=== PATIENT | female | born 1975 | race Caucasian/White ===

== ENCOUNTER 2019-01-16 12:36 | Outpatient (REF) | payer MEDICAID, SELFPAY ==
--- NOTE | 2019-01-16 11:45 | PAPFT_PTH ---
PATIENT: Laquita Clarke LOC: [facility] U#:[id number] AGE/SX: 44/F ROOM: RE01/16/[address]: Ian Farmer : 1975 BED: DIS: 01/16/2019 SPEC #: [id number] RECD: 01/17/19 13:03 STATUS: SUSANNA RELacey #: [id number] VIKASH: 01/16/19 11:[address]: Ian Farmer DEPT: [facility] Cytology RECD BY: Ashlee Sun Tissues: 1 - CX/ENDOCX FOR PAP SMEARS Procedures: PAP THIN PREP/[facility] Screening HPV DNA PROBE Comments: [id number]
[2019-01-18 09:36] LABS: Hepatitis C Ab w Rflx HCV PCR Negative (NEGAT)
[2019-01-18 09:44] LABS: HIV-1/2 Ag & Ab Screen Negative (NEGAT)
[2019-01-18 11:10] LABS: Syphilis Serology (RPR) Negative (Negative)
[2019-01-18 15:27] LABS: Chlamydia Result Negative; GC Result Negative; Specimen Description CERVIX
== END 2019-01-16 12:56 ==
LOC: NCHCN 12:36
PROVIDERS: PCP Physician Assistant Medical; Visit Provider Physician Assistant Medical
DX: Z11.4 Encounter for screening for human immunodeficiency virus [HIV] (principal); Z11.3 Encounter for screening for infections with a predominantly sexual mode of transmission; Z12.4 Encounter for screening for malignant neoplasm of cervix; Z11.51 Encounter for screening for human papillomavirus (HPV); Z00.00 Encounter for general adult medical examination without abnormal findings
CPT/HCPCS: 86803; 87389; 87491; 87591; 88142; 86592; 87624

== ENCOUNTER 2021-09-02 10:54 | Outpatient (REF) | payer MEDICAID, SELFPAY ==
--- NOTE | 2021-09-02 10:00 | PAPFT_PTH ---
PATIENT: Laquita Clarke LOC: [facility]#:[id number] AGE/SX: 46/F ROOM: RE09/02/[address]: Ian Farmer : 1975 BED: DIS: 09/02/2021 SPEC #: [id number] RECD: 09/02/21 13:15 STATUS: SUSANNA SANCHEZ #: [id number] VIKASH: 09/02/21 10:[address]: Ian Farmer DEPT: [facility] Cytology RECD BY: Ashlee Sun Tissues: 1 - CX/ENDOCX FOR PAP SMEARS Procedures: PAP THIN PREP/[facility] Screening HPV DNA PROBE Comments: [id number] (HPV 16 & 18/45)
[2021-09-02 13:22] LABS: Calculated LDL 137 mg/dL (<100); Cholesterol 229 mg/dL (<200); Glucose 84 mg/dL (74-106); HDL Cholesterol 72 mg/dL (40-60); TSH (W/Ref FT4) 1.22 uIU/mL (0.36-3.74); Triglyceride 101 mg/dL (<150)
== END 2021-09-02 10:55 | disposition home or self-care (01) ==
LOC: NCHCN 10:54
PROVIDERS: PCP Physician Assistant Medical; Visit Provider Physician Assistant Medical
DX: Z00.8 Encounter for other general examination (principal); Z12.4 Encounter for screening for malignant neoplasm of cervix; Z11.51 Encounter for screening for human papillomavirus (HPV); R87.810 Cervical high risk human papillomavirus (HPV) DNA test positive
CPT/HCPCS: 80061; 82947; 88142; 84443; 87624

== ENCOUNTER 2022-10-01 10:22 | Outpatient (REF) | payer MEDICAID, SELFPAY ==
--- NOTE | 2022-10-01 09:30 | PAPFT_PTH ---
PATIENT: Laquita Clarke LOC: [facility] U#:[id number] AGE/SX: 47/F ROOM: RE10/01/[address]: Ian Farmer : 1975 BED: DIS: 10/01/2022 SPEC #: [id number] RECD: 10/01/22 17:27 STATUS: SUSANNA SANCHEZ #: [id number] VIKASH: 10/01/22 09:[address]: Ian Farmer DEPT: [facility] Cytology RECD BY: Ashlee Sun Tissues: 1 - CX/ENDOCX FOR PAP SMEARS Procedures: PAP THIN PREP/[facility] Screening HPV DNA PROBE Comments: [id number]
== END 2022-10-01 10:23 | disposition home or self-care (01) ==
LOC: LBN 10:22
PROVIDERS: PCP Physician Assistant Medical; Visit Provider Physician Assistant Medical
DX: Z12.4 Encounter for screening for malignant neoplasm of cervix (principal); Z11.51 Encounter for screening for human papillomavirus (HPV)
CPT/HCPCS: 88142; 87624

== ENCOUNTER 2024-06-27 19:58 | Outpatient (REF) | payer MEDICAID, SELFPAY ==
[2024-06-28 20:03] LABS: HIV-1/2 Ag & Ab Screen Negative (Negative)
[2024-06-28 20:08] LABS: Hepatitis C Ab w Rflx HCV PCR Negative (Negative)
[2024-06-29 11:32] LABS: Syphilis Serology (RPR) Negative (Negative)
[2024-06-29 13:14] LABS: Chlamydia Result Negative (Negative); GC Result Negative (Negative)
== END 2024-06-27 19:59 | disposition home or self-care (01) ==
LOC: NCHCN 19:58
PROVIDERS: PCP Physician Assistant Medical; Visit Provider Physician Assistant Medical
DX: Z11.3 Encounter for screening for infections with a predominantly sexual mode of transmission (principal)
CPT/HCPCS: 86803; 87389; 87491; 87591; 86592

== ENCOUNTER 2025-02-19 12:56 | Outpatient (REF) | payer MEDICAID, SELFPAY ==
[2025-02-20 10:28] LABS: Hepatitis C Ab w Rflx HCV PCR Negative (Negative)
[2025-02-20 10:36] LABS: HIV-1/2 Ag & Ab Screen Negative (Negative)
== END 2025-02-19 12:57 | disposition home or self-care (01) ==
LOC: NCHCN 12:56
PROVIDERS: PCP Physician Assistant Medical; Visit Provider Physician Assistant Medical
DX: Z00.00 Encounter for general adult medical examination without abnormal findings (principal)
CPT/HCPCS: 86803; 87389

== ENCOUNTER 2025-02-25 16:07 | Outpatient (REF) | payer MEDICAID, SELFPAY ==
--- NOTE | 2025-02-25 11:00 | PAPFT_PTH ---
PATIENT: Laquita Clarke LOC: [facility]#:[id number] AGE/SX: 50/F ROOM: RE02/25/[address]: Ian Farmer : 1975 BED: DIS: 02/25/2025 SPEC #: [id number] RECD: 02/25/25 17:43 STATUS: SUSANNA REQ #: [id number] VIKASH: 02/25/25 11:[address]: Ian Farmer DEPT: [facility] Cytology RECD BY: Ashlee Sun Tissues: 1 - CX/ENDOCX FOR PAP SMEARS Procedures: PAP THIN PREP/[facility] Screening HPV DNA PROBE Comments: [id number] (HPV 16 & 18/45) (CHLAMYDIA/GC)
[2025-02-26 12:54] LABS: Chlamydia Result Negative (Negative); GC Result Negative (Negative)
== END 2025-02-25 16:08 | disposition home or self-care (01) ==
LOC: NCHCN 16:07
PROVIDERS: PCP Physician Assistant Medical; Visit Provider Physician Assistant Medical
DX: Z11.51 Encounter for screening for human papillomavirus (HPV) (principal); Z11.3 Encounter for screening for infections with a predominantly sexual mode of transmission; Z01.419 Encounter for gynecological examination (general) (routine) without abnormal findings
CPT/HCPCS: 87491; 87591; 88142; 87624